=== PATIENT | female | born 1960 | race Caucasian/White ===

== ENCOUNTER 2018-11-12 18:16 | Emergency (ER) | payer OTHER ==
[~2018-11-12] VITALS: Ht 154.9 cm; Wt 74.8 kg
[~2018-11-12 18:16] MED LIST: 5-HTP; 5-HTP50 MG PO; ATIVAN1 MG; ATIVAN1 MG PO; COLACE100 MG PO; ESTRACE0.5 MG PO; ESTROVEN MAX200 MCG; FISH OIL 1,0001 EAC5 PO; FISH OIL 1,4001 EACH; FOLIC ACID1 MG PO; GABAPENTIN100 MG PO; GLYCOLAX POWDER17 G1 PO; MELATONIN3 MG PO; NICOTINE TRANSD21 M1 TD; PROVERA2.5 MG PO; VESICARE10 M1 PO; VOLTAREN GEL 1100 G1
[2018-11-12] MEDS ORDERED: SINGULAIR 10 MG10 M1 PO (18:34)
[2018-11-12] MEDS ORDERED: ALBUTEROL2.5 MG/31 INH (18:34)
[2018-11-12] MEDS ORDERED: ZYRTEC10 M5 PO (18:34)
[2018-11-12 19:05] LABS: ABSOLUTE BASOPHILS 0.1 thou/uL (0.0-0.2); ABSOLUTE EOSINOPHILS 0.2 thou/uL (0.0-0.7); ABSOLUTE LYMPHOCYTES 3.5 thou/uL (0.8-5.3); ABSOLUTE MONOCYTES 0.6 thou/uL (0.0-1.2); ABSOLUTE NEUTROPHILS 4.2 thou/uL (1.6-8.1); BASOPHILS 1.4 %; EOSINOPHILS 2.2 %; HEMOGLOBIN 12.7 gm/dL (12.0-15.0); LYMPHOCYTES 40.7 %; MCH 30.9 pg (26.0-34.0); MCHC 34.2 g/dL (28.0-37.0); MCV 90.2 fL (80.0-100.0); MONOCYTES 6.8 %; MPV 9.1 fl. (7.2-11.1); NUCLEATED RBCS 0 /100WBC; PLATELET COUNT* 271 thou/uL (150-400); POLYS 48.9 %; RDW-CV 13.1 % (10.5-14.5); WBC 8.6 thou/uL (4.0-11.0)
[2018-11-12 19:15] LABS: CALCIUM 8.9 mg/dL (8.5-10.1); CREATININE 0.9 mg/dL (0.6-1.3); POTASSIUM 3.8 mmol/L (3.5-5.1)
[2018-11-12 19:17] LABS: APTT 25.8 Seconds (25.0-31.3); PROTIME 9.8 Seconds (9.20-11.50)
[2018-11-12] MEDS ORDERED: TRAMADOL 50 MG50 MG PO (20:41)
[2018-11-12] MEDS ORDERED: IBUPROFEN 800800 M1 PO (20:41)
[2018-11-12 21:00] VITALS: BP 120/50
== END 2018-11-12 21:03 | disposition home or self-care (01) ==
LOC: M.ERS 18:16
PROVIDERS: Nurse Practitioner Family
DX: S80.11XA Contusion of right lower leg, initial encounter (principal); F31.9 Bipolar disorder, unspecified; K58.9 Irritable bowel syndrome, unspecified; Z98.890 Other specified postprocedural states; W18.39XA Other fall on same level, initial encounter; Y92.89 Other specified places as the place of occurrence of the external cause; Y93.89 Activity, other specified; Y99.8 Other external cause status